=== PATIENT | male | born 1975 | race Caucasian/White ===

== ENCOUNTER 2016-11-06 09:20 | Observation (INO) | payer OTHER ==
[~2016-11-06] VITALS: Ht 190.5 cm; Wt 132.2 kg
[2016-11-06] MEDS ORDERED: ONDANSETRON 4MG/2ML VIAL (J2405) As Ordered ONE (09:56)
[2016-11-06 10:18] LABS: BASO % 0.1 % (0.0-1.0); EOS % 0.5 % (0.0-3.0); LARGE UNSTAINED CELL # 0.1 K/mm3 (0.0-0.4); LARGE UNSTAINED CELL % 0.5 % (0.0-4.0); LYMPH # 0.5 K/mm3 (1.5-4.5); MEAN CORPUSCULAR HEMOGLOBIN 28.5 pg (27.0-33.0); MEAN CORPUSCULAR HGB CONC 33.8 g/dl (32.0-36.5); MEAN CORPUSCULAR VOLUME 84.6 fl (80.0-96.0); MONO # 0.3 K/mm3 (0.0-0.8); MONO % 3.1 % (0.0-5.0); NEUTROPHILS # 9.4 K/mm3 (1.8-7.7); NEUTROPHILS % 90.8 % (36.0-66.0); PLATELET COUNT, AUTOMATED 225 k/mm3 (150-450); RED CELL DISTRIBUTION WIDTH 12.9 % (11.5-14.5); WHITE BLOOD COUNT 10.3 K/mm3 (4.0-10.0)
[2016-11-06] MEDS ORDERED: ISOVUE-370 76% 100ML VIAL (Q9967) As Ordered ONE (10:25)
[2016-11-06 10:38] LABS: ALBUMIN 4.1 GM/DL (3.2-5.2); ALBUMIN/GLOBULIN RATIO 1.14 (1.00-1.93); ALKALINE PHOSPHATASE 61 U/L (45-117); ALT/SGPT 56 U/L (12-78); ANION GAP 8 MEQ/L (8-16); AST/SGOT 29 U/L (15-37); BILIRUBIN,DIRECT 0.1 MG/DL (0.0-0.2); BILIRUBIN,TOTAL 0.7 MG/DL (0.2-1.0); BLOOD UREA NITROGEN 20 MG/DL (7-18); CALCIUM LEVEL 8.7 MG/DL (8.5-10.1); CARBON DIOXIDE LEVEL 29 MEQ/L (21-32); CHLORIDE LEVEL 103 MEQ/L (98-107); CREATININE FOR GFR 1.16 MG/DL (0.70-1.30); GLOMERULAR FILTRATION RATE > 60.0 (>60); GLUCOSE, FASTING 116 MG/DL (70-105); SODIUM LEVEL 140 MEQ/L (136-145); TOTAL PROTEIN 7.7 GM/DL (6.4-8.2)
--- NOTE | 2016-11-06 11:44 | REP ---
CT abdomen and pelvis with IV contrast: History: Abdominal pain. CT contrast dose: 100 ml of Isovue 370 is administered intravenously. Findings: Preliminary digital commercial estimator radiograph is unremarkable. The lung window settings demonstrate that the lung bases are clear. No pleural effusion is seen. The liver and the spleen are normal in size and homogeneous in texture. Gallbladder is unremarkable. No adrenal lesion is seen on either side. Pancreas is normal in appearance. The kidneys enhance symmetrically and are morphologically intact. There is an accessory lower pole right renal artery. Normal caliber aorta is seen. No retroperitoneal mass or adenopathy is observed. Seminal vesicles, prostate and urinary bladder are unremarkable. No abdominal wall defect is seen. No bony destructive lesion is appreciated. A normal appendix is seen in the right lower quadrant. Fluid-filled small bowel loops are noted in the upper abdomen. No obstructive lesion is seen. There is mild mural thickening of distal ileal loops fairly diffusely. The terminal most ileum shows some submucosal fat in the bowel wall. This finding may correlate with old inflammatory bowel disease. No other abnormality. Impression: 1. Question mild inflammatory bowel changes with mural thickening in the distal ileum and some submucosal fat in the terminal ileum. 2. Otherwise unremarkable CT study of the abdomen and pelvis with IV but without oral contrast. Normal appendix seen. Signed by Lavelle Hayden MD 11/06/2016 12:25 P
[2016-11-06] MEDS ORDERED: PROMETHAZINE INJ 25 MG/ML VIAL (J2550) As Ordered ONE ×2 (12:44→14:46)
[2016-11-06] MEDS ORDERED: CIPROFLOXACIN/D5W 400 MG/200 ML BAG (J0744) As Ordered ONE (14:46)
[2016-11-06] MEDS ORDERED: metroNIDAZOLE/NACL 500MG(5MG/ML)100 ML BAG (S0030) As Ordered ONE (14:46)
[2016-11-06] MEDS ORDERED: VITA500055 PO (14:55)
[2016-11-06] MEDS ORDERED: REFR0.5D8 OU (14:55)
[2016-11-06] MEDS ORDERED: PRAZ5CAP PO (14:55)
[2016-11-06] MEDS ORDERED: GABA300C3 PO (14:55)
[2016-11-06] MEDS ORDERED: BUPR300T34 PO (14:55)
[2016-11-06] MEDS ORDERED: BUDE3CAP PO (14:55)
[2016-11-06] MEDS ORDERED: ATOR1TAB21 PO (14:55)
[2016-11-06] MEDS ORDERED: NEXI40CA PO (14:55)
[2016-11-06] MEDS ORDERED: LISI10TA4 PO (14:55)
[2016-11-06] MEDS ORDERED: CIPROFLOXACIN 400 MG in APPROPRIATE DILUENT 1 EA IV ONE (15:15)
--- NOTE | 2016-11-06 15:17 | HPEPDOC ---
Medical History and Physical Date of Admission 11/06/16 History and Physical ATTENDING: Dr. Chapa PCP: Emily CC: Intractable vomiting HPI:41yoM with a past medical history significant for UC, HTN, HLD, who states he experienced an anxiety attack at approximately 2 AM followed by vomiting. Since 2 AM he states he has vomited approximately 15-16 times. He was seen at [facility] this morning and was given Zofran however it was ineffective. He continued to have intractable vomiting therefore was referred to the emergency department for further management. He also states he has had diarrhea 5-6 times since 6 AM. He feels chilled however he reports no fevers. He began to notice abdominal discomfort in the left lower quadrant. Prior to today he reports no recent illnesses. No sick contacts. Denies any weakness, fatigue, IBRAHIM, CP, SOB, cough, palpitations, changes in bladder habits. Upon presentation to the hospital the patient was found to have CT with inflammatory bowel changes, thus the hospitalist team was consulted. 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 ROS: As noted in HPI, otherwise 11pt ROS of systems reviewed and unremarkable PE: GEN: 41yoM, appears stated age. Well-nourished, well developed. No acute distress. Alert and oriented x 3. Pleasant, interactive. HEENT: Normocephalic, atraumatic. Pupils are equal, round, and reactive to light. Extraocular movements are intact. No nystagmus appreciated. Sclera are nonicteric. Conjunctiva without injection. Nose midline. Nasal turbinates without bogginess. EACs both patent BL. TMs both visualized and rodríguez with good cone of light, no bulging or erythema. No facial asymmetry. Moist mucous membranes. Dentition fair. Pharynx pink and moist, no cobblestoning. Neck supple , trachea midline. No lymphadenopathy or thyromegaly appreciated. CHEST: Regular rate and rhythm, +S1, +S2 LUNGS: Clear to auscultation bilaterally. No wheezes, rales, or rhonchi. Breathing appears symmetric and easy. Patient is speaking in full sentences. No accessory muscle use. ABD: Round, soft, mildly TTP RLQ, LLQ, non-distended. +Bowel sounds throughout. No rebound or guarding. No costovertebral angle tenderness. EXT: Pulses 2+ bilaterally dorsalis pedis and radial. No lower extremity edema appreciated. SKIN: [place], dry, warm. Capillary refill <2sec. No rashes. NEURO: Alert and oriented x 3. Cranial nerves III-XII are intact. No focal deficits appreciated. CT: 1. Question mild inflammatory bowel changes with mural thickening in the distal ileum and some submucosal fat in the terminal ileum. 2. Otherwise unremarkable CT study of the abdomen and pelvis with IV but without oral contrast. Normal appendix seen. BLOOD CULTURES: pending. A&P: 41yoM with a past medical history significant for UC, HTN, HLD, who states he experienced an anxiety attack at approximately 2 AM followed by vomiting. Since 2 AM he states he has vomited approximately 15-16 times. He was seen at [facility] this morning and was given Zofran however it was ineffective. He continued to have intractable vomiting therefore was referred to the emergency department for further management. The patient will be admitted to [facility] for at least [address] Chapa's service. Pt is discussed with Dr Bonilla. N/V/Diarrhea/Gastroenteritis. CT with mild inflammatory bowel changes and mural thickening. BC/UC pending. GI panel pending. IV Cipro/Flagyl initiated. IVF at 75 cc/hr. clear liquid diet. Phenergan as needed for nausea. (Zofran ineffective ). Tylenol as needed. H/O UC. Continue Entocort at outpatient dosing. Hypertension. Continue lisinopril with hold parameters. Hyperlipidemia. Continue statin. Anxiety/PTSD. Continue Wellbutrin/Minipress/gabapentin. GERD. Continue PPI DVT prophylaxis. The patient is a full code Vital Signs 149/94 83 16 96 98RA Laboratory Data Labs 24H Laboratory Tests 2 11/06/16 10:06: Aspartate Amino Transf (AST/SGOT) 29, Alanine Aminotransferase (ALT/SGPT) 56, Alkaline Phosphatase 61, Total Bilirubin 0.7, Direct Bilirubin 0.1, Albumin 4.1 , Albumin/Globulin Ratio 1.14, Anion Gap 8, White Blood Count 10.3H, Red Blood Count 5.32, Hemoglobin 15.2, Hematocrit 45.0, Mean Corpuscular Volume 84.6, Mean Corpuscular Hemoglobin 28.5, Mean Corpuscular Hemoglobin Concent 33.8, Red Cell Distribution Width 12.9, Platelet Count 225, Neutrophils (%) (Auto) 90.8H, Lymphocytes (%) (Auto) 5.0L, Monocytes (%) (Auto) 3.1, Eosinophils (%) (Auto) 0.5, Basophils (%) (Auto) 0.1, Neutrophils # (Auto) 9.4H, Lymphocytes # (Auto) 0.5L, Monocytes # (Auto) 0.3, Eosinophils # (Auto) 0.0, Basophils # (Auto) 0.0, Calcium Level 8.7, Glomerular Filtration Rate > 60.0, Large Unclassified Cells # 0.1, Large Unclassified Cells % 0.5, Lipase 149, Total Protein 7.7 CBC/BMP Laboratory Tests 11/06/16 10:06 Red Blood Count 5.32, Mean Corpuscular Volume 84.6, Mean Corpuscular Hemoglobin 28.5, Mean Corpuscular Hemoglobin Concent 33.8, Red Cell Distribution Width 12.9 , Neutrophils (%) (Auto) 90.8 H, Lymphocytes (%) (Auto) 5.0 L, Monocytes (%) ( Auto) 3.1, Eosinophils (%) (Auto) 0.5, Basophils (%) (Auto) 0.1, Neutrophils # ( Auto) 9.4 H, Lymphocytes # (Auto) 0.5 L, Monocytes # (Auto) 0.3, Eosinophils # ( Auto) 0.0, Basophils # (Auto) 0.0 Home Medications Scheduled Atorvastatin Calcium (Atorvastatin Calcium) 20 Mg Tab 20 MG PO DAILY Budesonide (Budesonide) 3 Mg Cap 9 MG PO DAILY Bupropion HCl (Bupropion HCl Xl) 300 Mg Tab 300 MG PO DAILY Cholecalciferol (Vitamin D3) 5,000 Unit Tab 5,000 UNIT PO DAILY Esomeprazole Magnesium Trihydr (Nexium) 40 Mg Cap 40 MG PO DAILY Gabapentin (Gabapentin) 300 Mg Cap 300 MG PO TID Lisinopril (Lisinopril) 10 Mg Tab 10 MG PO DAILY Prazosin Hcl (Prazosin HCl) 5 Mg Cap 5 MG PO QHS Scheduled PRN Carboxymethylcellulose Sodium (Refresh Tears) 0.5 % Brian 0.5 % OU PRN PRN PRN DRY EYES Allergies Coded Allergies: No Known Drug Allergy (Unverified Allergy, Unknown, 11/06/16) Sharyn Lopez Nov 06, 2016 15:17
[2016-11-06] MEDS ORDERED: PROMETHAZINE INJ 25 MG/ML VIAL (J2550) IV PRN (15:30)
[2016-11-06 15:44] VITALS: BP 138/76
--- NOTE | 2016-11-06 16:17 | EDDOCDS ---
Nurse's Notes [facility] Name: Jose A Balderas Age: 41 yrs Sex: Male : 1975 Arrival Date: 11/06/2016 Time: 09:20 Bed 17 Private MD: ALBERTO Diaz Diagnosis: Abdominal and pelvic pain;Nausea and vomiting Presentation: 11/06 09:28 Presenting complaint: Patient states: being seen at [facility] [place] and they couldn't get hs1 vomiting under control. Patient states sent here by Emily. Patient states that he suffers from anxiety attacks and suffers from intractable vomiting and IBD and vomits as an anxiety release. Patient states unable to control vomiting - appears very anxious and states he is anxious. Adult Sepsis Screening: The patient does not have new or worsening altered mentation. Patient's respiratory rate is less than 22. Systolic blood pressure is greater than 100. Patient has a qSOFA score of 0- Negative Sepsis Screen. Suicide/Homicide risk assessment- the patient denies having any suicidal and/or homicidal ideations and does not present with any other emotional, behavioral or mental health complaints. 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 Transition of care: patient was not received from another setting of care. 09:28 Acuity: EFFIE Level 3 hs1 09:28 Method Of Arrival: Walkin/Carried/Asstd hs1 Triage Assessment: 09:33 General: Appears uncomfortable, Behavior is anxious, restless. Pain: Location: abdomen hs1 Pain currently is 5 out of 10 on a pain scale. HIV screening NA for this visit Offered previously. GI: Reports nausea, vomiting. Derm: Skin is normal. Historical: - Allergies: No known drug Allergies; - Home Meds: 1. Wellbutrin XL 300 mg Oral Tb24 1 tab once daily 2. gabapentin 300 mg Oral tab three times a day 3. Zestril 20 mg Oral tab 1 tab once daily 4. Lipitor 20 mg Oral tab 1 tab once daily 5. something for IBD 6. Flexeril 5 mg Oral tab 1 tab 3 times per day as needed 7. prazosin 5 mg Oral cap nightly - PMHx: IBD; PTSD; Anxiety; Colitis; GERD; - PSHx: none; - Social history: Smoking status: Patient states was never smoker of tobacco. No barriers to communication noted, The patient speaks fluent [place], Speaks appropriately for age. - Family history: Not pertinent. - : The pt / caregiver states he / she is not on anticoagulants. Home medication list is obtained from the patient. - Exposure Risk Screening:: None identified. Screenin:09 Screening information is obtained from the patient. Fall risk: No risks identified. ml6 Assistance ADL's: requires no assistance with activities of daily living. Abuse/DV Screen: The patient / caregiver reports he/she is: not in a situation that causes fear, pain or injury. Nutritional screening: No deficits noted. Advance Directives: Currently, there is no health care proxy. home support is adequate. Assessment: 10:00 General: Appears in no apparent distress, Behavior is anxious, cooperative. Pain: ml6 Location: left lower quadrant Pain currently is 5 out of 10 on a pain scale. Pain does not radiate. Quality of pain is described as aching, Pain began years ago. Is intermittent episodic lasting more than 1 hour Alleviated by medications, rest. Cardiovascular: Capillary refill < 3 seconds is brisk in bilateral fingers toes. Respiratory: No deficits noted. Airway is patent Respiratory effort is even, unlabored, Respiratory pattern is regular, symmetrical, Breath sounds are clear bilaterally. GI: Abdomen is flat, non- distended Bowel sounds present X 4 quads. Abd is soft and non tender X 4 quads. Reports nausea, vomiting. 11:00 Reassessment: Patient appears in no apparent distress at this time. Patient denies pain ml6 at this time. Patient states feeling better. Patient states symptoms have improved. GI: Reports nausea. 12:00 Reassessment: Patient appears in no apparent distress at this time. Patient denies pain ml6 at this time. Patient states feeling better. Patient states symptoms have improved. 13:00 General: Appears in no apparent distress, comfortable, Behavior is anxious, ml6 cooperative. Pain: Denies pain. Cardiovascular: No deficits noted. Capillary refill < 3 seconds is brisk in bilateral fingers toes. Respiratory: No deficits noted. Airway is patent Respiratory effort is even, unlabored, Respiratory pattern is regular, symmetrical, Breath sounds are clear bilaterally. GI: Abdomen is flat, non- distended Bowel sounds present X 4 quads. Abd is soft and non tender X 4 quads. Reports nausea, Denies vomiting. 14:00 Reassessment: Patient appears in no apparent distress at this time. Patient denies pain ml6 at this time. Patient states feeling better. Patient states symptoms have improved. patient states that his nausea has improved. 15:00 Reassessment: Patient appears in no apparent distress at this time. Patient denies pain ml6 at this time. Patient states feeling better. Patient states symptoms have improved. no change from previous assessment. 16:13 General: Appears in no apparent distress, comfortable, Behavior is anxious, ml6 cooperative. Pain: Denies pain. Cardiovascular: No deficits noted. Capillary refill < 3 seconds is brisk in bilateral fingers toes Heart tones S1 S2 present Edema is absent. Pulses are all present. Respiratory: No deficits noted. Airway is patent Respiratory effort is even, unlabored, Respiratory pattern is regular, symmetrical, Breath sounds are clear bilaterally. GI: No deficits noted. Abdomen is flat, non- distended Bowel sounds present X 4 quads. Abd is soft and non tender. Vital Signs: 09:22 BP 149 / 94; Pulse 83; Resp 16; Temp 96.0(O); Pulse Ox 98% on R/A; Weight 132.9 kg (R); elp Height 75 in. (190.50 cm) (R); 15:43 BP 138 / 76 (auto/); Pulse 81; Resp 16; Temp 100(O); Pulse Ox 98% on R/A; Pain 0/10; ml6 09:22 Body Mass Index 36.62 (132.90 kg, 190.50 cm) el Vitals: 09:22 Log In Time: November 06, 2016 at 09:20. [facility] ED Course: 09:21 Patient visited by Gini Prajapati PCA. elp 09:21 Emily [facility] is Private Physician. elp 09:21 Patient moved to Waiting elp 09:23 Patient visited by Gini Prajapati PCA. elp 09:24 Patient moved to Pre RCE elp 09:30 Triage Initiated hs1 09:35 Norma Bennett RN is Primary Nurse. dwg 09:35 Patient moved to 8 dwg 09:37 Patient moved to 17 dwg 09:38 Primary Nurse role handed off by Norma Bennett RN srm 09:55 Patient visited by Adrien Mckeon RN. ml6 09:56 Jacquelyn Mcgowan MD is Attending Physician. fg 09:56 Patient visited by Jacquelyn Mcgowan MD. fg 10:00 Inserted peripheral IV: 18gauge IV in left antecubital area and blood collected. ml6 Patient tolerated the procedure well. Labs drawn. (by ED staff). Sent per order to lab. 10:36 Patient visited by Adrien Mckeon, NIHARIKA. ml6 10:56 [facility] [place] Payment Agreement was scanned into [employer] and attached to record. lg 11:16 Patient visited by Adrien Mckeon RN. ml6 11:44 Patient visited by Adrien Mckeon RN. ml6 11:45 CT ABD & PELVIS: IV Contrast Only Returned. EDMS 12:10 Patient visited by Adrien Mckeon RN. ml6 12:24 Patient visited by Ruchi Andrade RN. srm 13:02 Patient visited by Adrien Mckeon RN. ml6 14:05 Patient visited by Adrien Mckeon RN. ml6 14:34 Bi Bonilla is Hospitalizing Provider. fg 16:14 The patient / caregiver is instructed regarding the plan of care and ED course. ml6 16:14 No procedures done that require assistance. ml6 Administered Medications: 10:10 Drug: NS 0.9% 1000 ml [sodium chloride 0.9 % intravenous solution] Route: IV; Rate: ml6 bolus; Site: left antecubital; 10:10 Drug: Ondansetron 4 mg [ondansetron HCl 2 mg/mL intravenous solution (2 mL)] Route: ml6 IVP; Site: left antecubital; 12:45 Drug: Promethazine 12.5 mg [promethazine 25 mg/mL injection solution (0.5 mL)] Route: ml6 IVP; Site: left antecubital; 14:31 Drug: Promethazine 12.5 mg [promethazine 25 mg/mL injection solution (0.5 mL)] Route: ml6 IVP; Site: left antecubital; 14:35 Drug: metroNIDAZOLE 500 mg [metronidazole 500 mg/100 mL-sodium chloride(iso) ml6 intravenous piggyback] Route: IV; Rate: 100 mL/hr; Infused Over: 60 mins; Site: left antecubital; 14:53 Drug: Ciprofloxacin 400 mg [ciprofloxacin 400 mg/200 mL in 5 % dextrose intravenous ml6 piggyback] Route: IVPB; Rate: 200 mL/hr; Infused Over: 60 mins; Site: left antecubital; Order Results: Lab Order: CBC with Diff; SPEC'M 11/06/16 10:06 Test: WHITE BLOOD COUNT; Value: 10.3; Range: 4.0-10.0; Abnormal: Above high normal; Units: K/mm3; Status: F Test: RED BLOOD COUNT; Value: 5.32; Range: 4.30-6.10; Units: M/mm3; Status: F Test: HEMOGLOBIN; Value: 15.2; Range: 14.0-18.0; Units: g/dl; Status: F Test: HEMATOCRIT; Value: 45.0; Range: 42.0-52.0; Units: %; Status: F Test: MEAN CORPUSCULAR VOLUME; Value: 84.6; Range: 80.0-96.0; Units: fl; Status: F Test: MEAN CORPUSCULAR HEMOGLOBIN; Value: 28.5; Range: 27.0-33.0; Units: pg; Status: F Test: MEAN CORPUSCULAR HGB CONC; Value: 33.8; Range: 32.0-36.5; Units: g/dl; Status: F Test: RED CELL DISTRIBUTION WIDTH; Value: 12.9; Range: 11.5-14.5; Units: %; Status: F Test: PLATELET COUNT, AUTOMATED; Value: 225; Range: 150-450; Units: k/mm3; Status: F Test: NEUTROPHILS %; Value: 90.8; Range: 36.0-66.0; Abnormal: Above high normal; Units: %; Status: F Test: LYMPH %; Value: 5.0; Range: 24.0-44.0; Abnormal: Below low normal; Units: %; Status: F Test: MONO %; Value: 3.1; Range: 0.0-5.0; Units: %; Status: F Test: EOS %; Value: 0.5; Range: 0.0-3.0; Units: %; Status: F Test: BASO %; Value: 0.1; Range: 0.0-1.0; Units: %; Status: F Test: LARGE UNSTAINED CELL %; Value: 0.5; Range: 0.0-4.0; Units: %; Status: F Test: NEUTROPHILS #; Value: 9.4; Range: 1.8-7.7; Abnormal: Above high normal; Units: K/mm3; Status: F Test: LYMPH #; Value: 0.5; Range: 1.5-4.5; Abnormal: Below low normal; Units: K/mm3; Status: F Test: MONO #; Value: 0.3; Range: 0.0-0.8; Units: K/mm3; Status: F Test: EOS #; Value: 0.0; Range: 0.0-0.50; Units: K/mm3; Status: F Test: BASO #; Value: 0.0; Range: 0.0-0.2; Units: K/mm3; Status: F Test: LARGE UNSTAINED CELL #; Value: 0.1; Range: 0.0-0.4; Units: K/mm3; Status: F Lab Order: Basic Metabolic Profile; [facility]' 11/06/16 10:06 Test: GLUCOSE, FASTING; Value: 116; Range: 70-105; Abnormal: Above high normal; Units: MG/DL; Status: F Test: BLOOD UREA NITROGEN; Value: 20; Range: 7-18; Abnormal: Above high normal; Units: MG/DL; Status: F Test: CREATININE FOR GFR; Value: 1.16; Range: 0.70-1.30; Units: MG/DL; Status: F Test: GLOMERULAR FILTRATION RATE; Value: > 60.0; Range: >60; Status: F Test: SODIUM LEVEL; Value: 140; Range: 136-145; Units: MEQ/L; Status: F Test: POTASSIUM SERUM; Value: 4.0; Range: 3.5-5.1; Units: MEQ/L; Status: F Test: CHLORIDE LEVEL; Value: 103; Range: 98-107; Units: MEQ/L; Status: F Test: CARBON DIOXIDE LEVEL; Value: 29; Range: 21-32; Units: MEQ/L; Status: F Test: ANION GAP; Value: 8; Range: 8-16; Units: MEQ/L; Status: F Test: CALCIUM LEVEL; Value: 8.7; Range: 8.5-10.1; Units: MG/DL; Status: F Test Note: ; Units are mL/min/1.73 m2 Chronic Kidney Disease Staging per NKF: Stage I & II GFR >=60 Normal to Mildly Decreased Stage III GFR 30-59 Moderately Decreased Stage IV GFR 15-29 Severely Decreased Stage V GFR <15 Very Little GFR Left ESRD GFR <15 on LABOR COMMISSIONER Lab Order: Lipase; SPEC'M 11/06/16 10:06 Test: LIPASE; Value: 149; Range: 73-393; Units: U/L; Status: F Lab Order: Liver Profile; SPEC'M 11/06/16 10:06 Test: AST/SGOT; Value: 29; Range: 15-37; Units: U/L; Status: F Test: ALT/SGPT; Value: 56; Range: 12-78; Units: U/L; Status: F Test: ALKALINE PHOSPHATASE; Value: 61; Range: 45-117; Units: U/L; Status: F Test: BILIRUBIN,TOTAL; Value: 0.7; Range: 0.2-1.0; Units: MG/DL; Status: F Test: BILIRUBIN,DIRECT; Value: 0.1; Range: 0.0-0.2; Units: MG/DL; Status: F Test: TOTAL PROTEIN; Value: 7.7; Range: 6.4-8.2; Units: GM/DL; Status: F Test: ALBUMIN; Value: 4.1; Range: 3.2-5.2; Units: GM/DL; Status: F Test: ALBUMIN/GLOBULIN RATIO; Value: 1.14; Range: 1.00-1.93; Status: F Radiology Order: CT ABD & PELVIS: IV Contrast Only Test: CT ABD & PELVIS: IV Contrast Only REASON FOR EXAMINATION: Abdomen Pain; CT abdomen and pelvis with IV contrast:; ; History: Abdominal pain.; ; CT contrast dose: 100 ml of Isovue 370 is administered intravenously.; ; Findings: Preliminary digital security compliance engineer radiograph is unremarkable. The lung window; settings demonstrate that the lung bases are clear. No pleural effusion is seen.; The liver and the spleen are normal in size and homogeneous in texture.; Gallbladder is unremarkable. No adrenal lesion is seen on either side. Pancreas; is normal in appearance. The kidneys enhance symmetrically and are; morphologically intact. There is an accessory lower pole right renal artery.; Normal caliber aorta is seen. No retroperitoneal mass or adenopathy is observed.; Seminal vesicles, prostate and urinary bladder are unremarkable. No abdominal; wall defect is seen. No bony destructive lesion is appreciated.; ; A normal appendix is seen in the right lower quadrant. Fluid-filled small bowel; loops are noted in the upper abdomen. No obstructive lesion is seen. There is; mild mural thickening of distal ileal loops fairly diffusely. The terminal most; ileum shows some submucosal fat in the bowel wall. This finding may correlate; with old inflammatory bowel disease. No other abnormality.; ; Impression:; ; 1. Question mild inflammatory bowel changes with mural thickening in the distal; ileum and some submucosal fat in the terminal ileum.; ; 2. Otherwise unremarkable CT study of the abdomen and pelvis with IV but without; oral contrast. Normal appendix seen.; ; ; Signed by; Lavelle Hayden MD 11/06/2016 12:25 P; Outcome: 14:34 Decision to Hospitalize by Provider. fg 16:13 Discharge Assessment: patient administered narcotics - no. The following High Risk ml6 Discharge criteria are identified: None. Admitted to Med/Surg accompanied by tech, via stretcher, with chart. Condition: stable. CT Study completed. Property sent home with patient. :Personal belongings accompany Pt. 16:15 Patient left the ED. ml6 Signatures: Dispatcher [employer] EDTahir Kimble RN RN dwg Michelson, Staci RN Temo Kessler, Angelo Reg Adrien Mckeon RN RN ml6 Alyssa Lyon RN RN 1 Gini Prajapati, AUTOMATIC PROFILE SANDER OPERATOR AUTOMATIC PROFILE SANDER OPERATOR Jacquelyn Liao MD MD MTDD
--- NOTE | 2016-11-06 16:17 | EDDOCDS ---
Physician Documentation [facility] Name: Jose A Balderas Age: 41 yrs Sex: Male : 1975 Arrival Date: 11/06/2016 Time: 09:20 Bed 17 Private MD: Emily [facility] [place], [place] Disposition: 11/06/16 14:34 Hospitalization ordered by Bi Bonilla for Inpatient Admission. Preliminary diagnosis are Abdominal and pelvic pain, Nausea and vomiting. - Bed requested for 4 [place]. - Status is Inpatient Admission. ml6 - Condition is Stable. - Problem is new. - Symptoms have improved. Historical: - Allergies: No known drug Allergies; - Home Meds: 1. Wellbutrin XL 300 mg Oral Tb24 1 tab once daily 2. gabapentin 300 mg Oral tab three times a day 3. Zestril 20 mg Oral tab 1 tab once daily 4. Lipitor 20 mg Oral tab 1 tab once daily 5. something for IBD 6. Flexeril 5 mg Oral tab 1 tab 3 times per day as needed 7. prazosin 5 mg Oral cap nightly - PMHx: IBD; PTSD; Anxiety; Colitis; GERD; - PSHx: none; - Social history: Smoking status: Patient states was never smoker of tobacco. No barriers to communication noted, The patient speaks fluent Ethiopian, Speaks appropriately for age. - Family history: Not pertinent. - : The pt / caregiver states he / she is not on anticoagulants. Home medication list is obtained from the patient. - Exposure Risk Screening:: None identified. Vital Signs: 11/06 09:22 BP 149 / 94; Pulse 83; Resp 16; Temp 96.0(O); Pulse Ox 98% on R/A; Weight 132.9 kg / elp 292.99 lbs (R); Height 75 in. (190.50 cm) (R); 15:43 BP 138 / 76 (auto/); Pulse 81; Resp 16; Temp 100(O); Pulse Ox 98% on R/A; Pain 0/10; ml6 09:22 Body Mass Index 36.62 (132.90 kg, 190.50 cm) elp MDM: 09:49 IV Saline Lock ordered. fg 09:49 NS 0.9% 1000 ml IV at bolus once ordered. fg 09:49 Undress patient appropriately for examination ordered. fg 09:49 CBC with Diff Ordered. EDMS 09:49 Basic Metabolic Profile Ordered. EDMS 09:49 Lipase Ordered. EDMS 09:49 Liver Profile Ordered. EDMS 09:50 NOTHING BY MOUTH+DIET ordered. EDMS 09:54 Ondansetron 4 mg IVP once ordered. ml6 10:15 CT ABD & PELVIS: IV Contrast Only Ordered. EDMS 10:28 Financial registration complete. lg 10:56 [facility] Payment Agreement was scanned into [employer] and attached to record. lg 12:44 Promethazine 12.5 mg IVP once; dilute and administer 30-60 minutes ordered. fg 14:28 Promethazine 12.5 mg IVP once; dilute and administer 30-60 minutes ordered. fg 14:34 Ciprofloxacin 400 mg IVPB at 200 mL/hr once over 60 mins ordered. fg 14:34 metroNIDAZOLE 500 mg IV at 100 mL/hr once over 60 mins ordered. fg 15:08 Admission / Observation Status ordered. EDMS 15:16 CLEAR LIQUIDS DIET ordered. EDMS 15:17 GASTROINTESTINAL (GI) PANEL Ordered. EDMS 15:17 GASTROINTESTINAL (GI) PANEL Ordered. EDMS 15:19 URINALYSIS Ordered. EDMS 15:19 BLOOD CULTURES Ordered. EDMS 15:19 BLOOD CULTURES Ordered. EDMS 15:19 URINE CULTURE Ordered. EDMS Administered Medications: 10:10 Drug: NS 0.9% 1000 ml [sodium chloride 0.9 % intravenous solution] Route: IV; Rate: ml6 bolus; Site: left antecubital; 10:10 Drug: Ondansetron 4 mg [ondansetron HCl 2 mg/mL intravenous solution (2 mL)] Route: ml6 IVP; Site: left antecubital; 12:45 Drug: Promethazine 12.5 mg [promethazine 25 mg/mL injection solution (0.5 mL)] Route: ml6 IVP; Site: left antecubital; 14:31 Drug: Promethazine 12.5 mg [promethazine 25 mg/mL injection solution (0.5 mL)] Route: ml6 IVP; Site: left antecubital; 14:35 Drug: metroNIDAZOLE 500 mg [metronidazole 500 mg/100 mL-sodium chloride(iso) ml6 intravenous piggyback] Route: IV; Rate: 100 mL/hr; Infused Over: 60 mins; Site: left antecubital; 14:53 Drug: Ciprofloxacin 400 mg [ciprofloxacin 400 mg/200 mL in 5 % dextrose intravenous ml6 piggyback] Route: IVPB; Rate: 200 mL/hr; Infused Over: 60 mins; Site: left antecubital; Signatures: Dispatcher [employer] Temo Gilmore, Reg Reg lg Adrien Mckeon RN RN ml6 Alyssa Lyon RN RN hs1 Radha Early RN RN [id number] Jacquelyn Mcgowan MD MD The chart was reviewed and I authenticate all verbal orders and agree with the evaluation and treatment provided.Attachments: 10:56 [facility] Payment Agreement lg MTDD
[2016-11-06 16:28] VITALS: BP 114/77
[2016-11-06] MEDS: ACETAMINOPHEN TAB 650MG DOSE (2X325MG) PO PRN (17:07)
[2016-11-06] MEDS: NS 1,000 ML IV SCH (17:07)
[2016-11-06] MEDS: PANTOPRAZOLE 40MG TAB (PROTONIX) PO SCH (17:07)
[2016-11-06] MEDS: buPROPion **XL** TABLET 150MG (WELLBUTRIN XL) PO SCH (18:23)
[2016-11-06] MEDS: GABAPENTIN 300 MG CAP PO SCH ×2 (18:23→20:13)
[2016-11-06] MEDS: LISINOPRIL 10 MG TAB PO SCH (18:26)
[2016-11-06] MEDS: PRAZOSIN 1 MG CAP PO SCH (20:14)
[2016-11-06 22:00] VITALS: BP 165/90
[2016-11-06] MEDS: metroNIDAZOLE 500 MG in APPROPRIATE DILUENT 1 EA IV SCH (23:41)
[2016-11-07] MEDS: NS 1,000 ML IV SCH (04:39)
[2016-11-07 06:00] VITALS: BP 140/77
[2016-11-07 07:09] LABS: BASO % 0.2 % (0.0-1.0); LARGE UNSTAINED CELL # 0.1 K/mm3 (0.0-0.4); LARGE UNSTAINED CELL % 1.9 % (0.0-4.0); LYMPH # 1.4 K/mm3 (1.5-4.5); MEAN CORPUSCULAR HGB CONC 34.8 g/dl (32.0-36.5); MEAN CORPUSCULAR VOLUME 83.5 fl (80.0-96.0); MONO # 0.4 K/mm3 (0.0-0.8); MONO % 7.7 % (0.0-5.0); NEUTROPHILS # 2.8 K/mm3 (1.8-7.7); NEUTROPHILS % 60.2 % (36.0-66.0); PLATELET COUNT, AUTOMATED 176 k/mm3 (150-450); RED CELL DISTRIBUTION WIDTH 13.2 % (11.5-14.5); WHITE BLOOD COUNT 4.6 K/mm3 (4.0-10.0)
[2016-11-07 07:23] LABS: ALBUMIN 3.3 GM/DL (3.2-5.2); ALBUMIN/GLOBULIN RATIO 1.18 (1.00-1.93); ALKALINE PHOSPHATASE 50 U/L (45-117); ALT/SGPT 36 U/L (12-78); ANION GAP 9 MEQ/L (8-16); AST/SGOT 22 U/L (15-37); BILIRUBIN,TOTAL 0.7 MG/DL (0.2-1.0); BLOOD UREA NITROGEN 16 MG/DL (7-18); CALCIUM LEVEL 7.7 MG/DL (8.5-10.1); CARBON DIOXIDE LEVEL 27 MEQ/L (21-32); CHLORIDE LEVEL 103 MEQ/L (98-107); CREATININE FOR GFR 1.12 MG/DL (0.70-1.30); GLOMERULAR FILTRATION RATE > 60.0 (>60); GLUCOSE, FASTING 106 MG/DL (70-105); POTASSIUM SERUM 3.5 MEQ/L (3.5-5.1); SODIUM LEVEL 139 MEQ/L (136-145); TOTAL PROTEIN 6.1 GM/DL (6.4-8.2)
[2016-11-07] MEDS: GABAPENTIN 300 MG CAP PO SCH ×3 (09:06→21:35)
[2016-11-07] MEDS: LISINOPRIL 10 MG TAB PO SCH (09:06)
[2016-11-07] MEDS: metroNIDAZOLE 500 MG in APPROPRIATE DILUENT 1 EA IV SCH ×2 (09:06→15:51)
[2016-11-07] MEDS: PANTOPRAZOLE 40MG TAB (PROTONIX) PO SCH (09:06)
[2016-11-07] MEDS: buPROPion **XL** TABLET 150MG (WELLBUTRIN XL) PO SCH (09:06)
[2016-11-07] MEDS: ACETAMINOPHEN TAB 650MG DOSE (2X325MG) PO PRN (09:08)
[2016-11-07] MEDS: BUDESONIDE EC 3 MG CAP (ENTOCORT EC) PO SCH ×2 (12:02→12:03)
[2016-11-07] MEDS: ATORVASTATIN 20 MG TAB PO SCH ×2 (12:02→12:03)
--- NOTE | 2016-11-07 12:44 | IPN ---
DATE: 11/07/2016 SUBJECTIVE: The patient tells me he is feeling better. He tells me that he had diarrhea around 5 a.m. but no further episode since then. He has not had any nausea or vomiting since being in the emergency room (ER). He tolerated a clear liquid breakfast without any complaints. OBJECTIVE: VITAL SIGNS: Maximum temperature (Tmax) 100.7. Pulse 85. Respiratory rate 18. Blood pressure (BP) 140/778. Oxygen saturation 93% on room air. GENERAL: He is a very pleasant middle-age man up and ambulating around his room. He does not appear to be in any distress. HEENT: Cranial nerves II-XII are grossly intact. He has moist mucous membranes. No elevation of central venous pressure (CVP). CARDIOVASCULAR EXAM: S1, S2. Regular. RESPIRATORY EXAM: Is clear. ABDOMINAL EXAM: Is benign. It is nontender to palpation. Bowel sounds are present. EXTREMITIES: No clubbing, cyanosis or edema. LABORATORY STUDIES: WBC 4.6, hemoglobin 12.5, hematocrit 35.8, platelet count is 186. dilutional drop in all cell lines Chemistry panel: Sodium 139, potassium 3.5, chloride 103 bicarbonate 27, BUN 16 , creatinine 1.1. Blood cultures are currently pending. CT of the abdomen and pelvis revealed mild inflammatory bowel changes with mural thickening in the distal ilium and submucosal fat in the terminal ileum. ASSESSMENT AND PLAN: This is a 41-year-old man with nausea, vomiting, and diarrhea. PROBLEMS: 1. Nausea, vomiting and diarrhea. The patient has a history of ulcerative colitis. He has been started on Cipro and Flagyl IV and a clear liquid diet, which he has tolerated well and his symptoms have since resolved at this point in time. I am less suspicious for an ulcerative colitis, but I am more suspicious for gastroenteritis versus irritable bowel syndrome as the patient awoke and "had a panic attack," and he has had similar episodes lately in the past, which are self limited in 24 hours. Thus, we will continue the patient on Cipro and Flagyl IV. We will advance his diet to regular. Should he tolerate a regular diet, we will transition to oral medications, discontinue his IV fluids and possibly be discharged home tomorrow. 2. Hypertension. controlled 3. Anxiety, posttraumatic stress disorder (PTSD). The patient is on Wellbutrin. 4. Chronic pain. The patient is on Neurontin. 5. BPH. The patient is on prazosin. 6. HLD. The patient is on Lipitor. 7. Ulcerative colitis. The patient is on EndoCoat, which we are continuing. 8. Deep venous thrombosis (DVT) prophylaxis. Early ambulation and thromboembolism deterrents (TEDs). DISPOSITION: The patient may be able to be discharged in the next 24-48 hours. MTDD
[2016-11-07 14:00] VITALS: BP 136/80
[2016-11-07] MEDS: PRAZOSIN 1 MG CAP PO SCH (21:36)
[2016-11-07 22:00] VITALS: BP 122/74
[2016-11-08 06:00] VITALS: BP 124/86
[2016-11-08 06:39] LABS: BASO % 0.2 % (0.0-1.0); EOS # 0.1 K/mm3 (0.0-0.50); EOS % 2.3 % (0.0-3.0); LARGE UNSTAINED CELL # 0.1 K/mm3 (0.0-0.4); LARGE UNSTAINED CELL % 1.5 % (0.0-4.0); LYMPH # 1.9 K/mm3 (1.5-4.5); LYMPH % 28.6 % (24.0-44.0); MEAN CORPUSCULAR HEMOGLOBIN 28.9 pg (27.0-33.0); MEAN CORPUSCULAR HGB CONC 34.4 g/dl (32.0-36.5); MONO # 0.4 K/mm3 (0.0-0.8); MONO % 6.3 % (0.0-5.0); NEUTROPHILS # 3.8 K/mm3 (1.8-7.7); NEUTROPHILS % 61.3 % (36.0-66.0); PLATELET COUNT, AUTOMATED 200 k/mm3 (150-450); RED CELL DISTRIBUTION WIDTH 13.2 % (11.5-14.5); WHITE BLOOD COUNT 6.2 K/mm3 (4.0-10.0)
[2016-11-08 06:58] LABS: ALBUMIN 3.4 GM/DL (3.2-5.2); ALKALINE PHOSPHATASE 53 U/L (45-117); ALT/SGPT 38 U/L (12-78); ANION GAP 8 MEQ/L (8-16); AST/SGOT 21 U/L (15-37); BILIRUBIN,TOTAL 0.4 MG/DL (0.2-1.0); BLOOD UREA NITROGEN 13 MG/DL (7-18); CALCIUM LEVEL 7.9 MG/DL (8.5-10.1); CARBON DIOXIDE LEVEL 27 MEQ/L (21-32); CHLORIDE LEVEL 105 MEQ/L (98-107); CREATININE FOR GFR 1.08 MG/DL (0.70-1.30); GLOMERULAR FILTRATION RATE > 60.0 (>60); GLUCOSE, FASTING 102 MG/DL (70-105); POTASSIUM SERUM 3.4 MEQ/L (3.5-5.1); SODIUM LEVEL 140 MEQ/L (136-145); TOTAL PROTEIN 6.8 GM/DL (6.4-8.2)
[2016-11-08 09:04] VITALS: BP 124/86
[2016-11-08] MEDS: GABAPENTIN 300 MG CAP PO SCH (09:04)
[2016-11-08] MEDS: BUDESONIDE EC 3 MG CAP (ENTOCORT EC) PO SCH (09:04)
[2016-11-08] MEDS: PANTOPRAZOLE 40MG TAB (PROTONIX) PO SCH (09:04)
[2016-11-08] MEDS: buPROPion **XL** TABLET 150MG (WELLBUTRIN XL) PO SCH (09:04)
[2016-11-08] MEDS: ATORVASTATIN 20 MG TAB PO SCH (09:04)
[2016-11-08] MEDS: LISINOPRIL 10 MG TAB PO SCH (09:04)
--- NOTE | 2016-11-08 17:17 | EDDOCDS ---
Nurse's Notes [facility] Name: Jose A Balderas Age: 41 yrs Sex: Male : 1975 Arrival Date: 11/06/2016 Time: 09:20 Bed 17 Private MD: ALBERTO Diaz Diagnosis: Abdominal and pelvic pain;Nausea and vomiting Presentation: 11/06 09:28 Presenting complaint: Patient states: being seen at [facility] and they couldn't get hs1 vomiting under control. Patient states sent here by Emily. Patient states that he suffers from anxiety attacks and suffers from intractable vomiting and IBD and vomits as an anxiety release. Patient states unable to control vomiting - appears very anxious and states he is anxious. Adult Sepsis Screening: The patient does not have new or worsening altered mentation. Patient's respiratory rate is less than 22. Systolic blood pressure is greater than 100. Patient has a qSOFA score of 0- Negative Sepsis Screen. Suicide/Homicide risk assessment- the patient denies having any suicidal and/or homicidal ideations and does not present with any other emotional, behavioral or mental health complaints. 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 Transition of care: patient was not received from another setting of care. 09:28 Acuity: EFFIE Level 3 hs1 09:28 Method Of Arrival: Walkin/Carried/Asstd hs1 Triage Assessment: 09:33 General: Appears uncomfortable, Behavior is anxious, restless. Pain: Location: abdomen hs1 Pain currently is 5 out of 10 on a pain scale. HIV screening NA for this visit Offered previously. GI: Reports nausea, vomiting. Derm: Skin is normal. Historical: - Allergies: No known drug Allergies; - Home Meds: 1. Wellbutrin XL 300 mg Oral Tb24 1 tab once daily 2. gabapentin 300 mg Oral tab three times a day 3. Zestril 20 mg Oral tab 1 tab once daily 4. Lipitor 20 mg Oral tab 1 tab once daily 5. something for IBD 6. Flexeril 5 mg Oral tab 1 tab 3 times per day as needed 7. prazosin 5 mg Oral cap nightly - PMHx: IBD; PTSD; Anxiety; Colitis; GERD; - PSHx: none; - Social history: Smoking status: Patient states was never smoker of tobacco. No barriers to communication noted, The patient speaks fluent Tunisian, Speaks appropriately for age. - Family history: Not pertinent. - : The pt / caregiver states he / she is not on anticoagulants. Home medication list is obtained from the patient. - Exposure Risk Screening:: None identified. Screenin:09 Screening information is obtained from the patient. Fall risk: No risks identified. ml6 Assistance ADL's: requires no assistance with activities of daily living. Abuse/DV Screen: The patient / caregiver reports he/she is: not in a situation that causes fear, pain or injury. Nutritional screening: No deficits noted. Advance Directives: Currently, there is no health care proxy. home support is adequate. Assessment: 10:00 General: Appears in no apparent distress, Behavior is anxious, cooperative. Pain: ml6 Location: left lower quadrant Pain currently is 5 out of 10 on a pain scale. Pain does not radiate. Quality of pain is described as aching, Pain began years ago. Is intermittent episodic lasting more than 1 hour Alleviated by medications, rest. Cardiovascular: Capillary refill < 3 seconds is brisk in bilateral fingers toes. Respiratory: No deficits noted. Airway is patent Respiratory effort is even, unlabored, Respiratory pattern is regular, symmetrical, Breath sounds are clear bilaterally. GI: Abdomen is flat, non- distended Bowel sounds present X 4 quads. Abd is soft and non tender X 4 quads. Reports nausea, vomiting. 11:00 Reassessment: Patient appears in no apparent distress at this time. Patient denies pain ml6 at this time. Patient states feeling better. Patient states symptoms have improved. GI: Reports nausea. 12:00 Reassessment: Patient appears in no apparent distress at this time. Patient denies pain ml6 at this time. Patient states feeling better. Patient states symptoms have improved. 13:00 General: Appears in no apparent distress, comfortable, Behavior is anxious, ml6 cooperative. Pain: Denies pain. Cardiovascular: No deficits noted. Capillary refill < 3 seconds is brisk in bilateral fingers toes. Respiratory: No deficits noted. Airway is patent Respiratory effort is even, unlabored, Respiratory pattern is regular, symmetrical, Breath sounds are clear bilaterally. GI: Abdomen is flat, non- distended Bowel sounds present X 4 quads. Abd is soft and non tender X 4 quads. Reports nausea, Denies vomiting. 14:00 Reassessment: Patient appears in no apparent distress at this time. Patient denies pain ml6 at this time. Patient states feeling better. Patient states symptoms have improved. patient states that his nausea has improved. 15:00 Reassessment: Patient appears in no apparent distress at this time. Patient denies pain ml6 at this time. Patient states feeling better. Patient states symptoms have improved. no change from previous assessment. 16:13 General: Appears in no apparent distress, comfortable, Behavior is anxious, ml6 cooperative. Pain: Denies pain. Cardiovascular: No deficits noted. Capillary refill < 3 seconds is brisk in bilateral fingers toes Heart tones S1 S2 present Edema is absent. Pulses are all present. Respiratory: No deficits noted. Airway is patent Respiratory effort is even, unlabored, Respiratory pattern is regular, symmetrical, Breath sounds are clear bilaterally. GI: No deficits noted. Abdomen is flat, non- distended Bowel sounds present X 4 quads. Abd is soft and non tender. Vital Signs: 09:22 BP 149 / 94; Pulse 83; Resp 16; Temp 96.0(O); Pulse Ox 98% on R/A; Weight 132.9 kg (R); elp Height 75 in. (190.50 cm) (R); 15:43 BP 138 / 76 (auto/); Pulse 81; Resp 16; Temp 100(O); Pulse Ox 98% on R/A; Pain 0/10; ml6 09:22 Body Mass Index 36.62 (132.90 kg, 190.50 cm) el Vitals: 09:22 Log In Time: November 06, 2016 at 09:20. [facility] ED Course: 09:21 Patient visited by Gini Prajapati PCA. elp 09:21 [facility] [place] Private Physician. elp 09:21 Patient moved to Waiting elp 09:23 Patient visited by Gini Prajapati PCA. elp 09:24 Patient moved to Pre RCE elp 09:30 Triage Initiated hs1 09:35 Norma Bennett RN is Primary Nurse. dwg 09:35 Patient moved to 8 dwg 09:37 Patient moved to 17 dwg 09:38 Primary Nurse role handed off by Norma Bennett RN srm 09:55 Patient visited by Adrien Mckeon RN. ml6 09:56 Jacquelyn Mcgowan MD is Attending Physician. fg 09:56 Patient visited by Jacquelyn Mcgowan MD. fg 10:00 Inserted peripheral IV: 18gauge IV in left antecubital area and blood collected. ml6 Patient tolerated the procedure well. Labs drawn. (by ED staff). Sent per order to lab. 10:36 Patient visited by Adrien Mckeon, NIHARIKA. ml6 10:56 [facility] Payment Agreement was scanned into [employer] and attached to record. lg 11:16 Patient visited by Adrien Mckeon RN. ml6 11:44 Patient visited by Adrien Mckeon RN. ml6 11:45 CT ABD & PELVIS: IV Contrast Only Returned. EDMS 12:10 Patient visited by Adrien Mckeon RN. ml6 12:24 Patient visited by Ruchi Andrade RN. srm 13:02 Patient visited by Adrien Mckeon, NIHARIKA. ml6 14:05 Patient visited by Adrien Mckeon, NIHARIKA. ml6 14:34 Bi Bonilla is Hospitalizing Provider. fg 16:14 The patient / caregiver is instructed regarding the plan of care and ED course. ml6 16:14 No procedures done that require assistance. ml6 11/07 09:50 T-Sheet-- Draft Copy was scanned into [employer] and attached to record. gb Administered Medications: 11/06 10:10 Drug: NS 0.9% 1000 ml [sodium chloride 0.9 % intravenous solution] Route: IV; Rate: ml6 bolus; Site: left antecubital; 10:10 Drug: Ondansetron 4 mg [ondansetron HCl 2 mg/mL intravenous solution (2 mL)] Route: ml6 IVP; Site: left antecubital; 12:45 Drug: Promethazine 12.5 mg [promethazine 25 mg/mL injection solution (0.5 mL)] Route: ml6 IVP; Site: left antecubital; 14:31 Drug: Promethazine 12.5 mg [promethazine 25 mg/mL injection solution (0.5 mL)] Route: ml6 IVP; Site: left antecubital; 14:35 Drug: metroNIDAZOLE 500 mg [metronidazole 500 mg/100 mL-sodium chloride(iso) ml6 intravenous piggyback] Route: IV; Rate: 100 mL/hr; Infused Over: 60 mins; Site: left antecubital; 14:53 Drug: Ciprofloxacin 400 mg [ciprofloxacin 400 mg/200 mL in 5 % dextrose intravenous ml6 piggyback] Route: IVPB; Rate: 200 mL/hr; Infused Over: 60 mins; Site: left antecubital; Order Results: Lab Order: CBC with Diff; SPEC'M 11/06/16 10:06 Test: WHITE BLOOD COUNT; Value: 10.3; Range: 4.0-10.0; Abnormal: Above high normal; Units: K/mm3; Status: F Test: RED BLOOD COUNT; Value: 5.32; Range: 4.30-6.10; Units: M/mm3; Status: F Test: HEMOGLOBIN; Value: 15.2; Range: 14.0-18.0; Units: g/dl; Status: F Test: HEMATOCRIT; Value: 45.0; Range: 42.0-52.0; Units: %; Status: F Test: MEAN CORPUSCULAR VOLUME; Value: 84.6; Range: 80.0-96.0; Units: fl; Status: F Test: MEAN CORPUSCULAR HEMOGLOBIN; Value: 28.5; Range: 27.0-33.0; Units: pg; Status: F Test: MEAN CORPUSCULAR HGB CONC; Value: 33.8; Range: 32.0-36.5; Units: g/dl; Status: F Test: RED CELL DISTRIBUTION WIDTH; Value: 12.9; Range: 11.5-14.5; Units: %; Status: F Test: PLATELET COUNT, AUTOMATED; Value: 225; Range: 150-450; Units: k/mm3; Status: F Test: NEUTROPHILS %; Value: 90.8; Range: 36.0-66.0; Abnormal: Above high normal; Units: %; Status: F Test: LYMPH %; Value: 5.0; Range: 24.0-44.0; Abnormal: Below low normal; Units: %; Status: F Test: MONO %; Value: 3.1; Range: 0.0-5.0; Units: %; Status: F Test: EOS %; Value: 0.5; Range: 0.0-3.0; Units: %; Status: F Test: BASO %; Value: 0.1; Range: 0.0-1.0; Units: %; Status: F Test: LARGE UNSTAINED CELL %; Value: 0.5; Range: 0.0-4.0; Units: %; Status: F Test: NEUTROPHILS #; Value: 9.4; Range: 1.8-7.7; Abnormal: Above high normal; Units: K/mm3; Status: F Test: LYMPH #; Value: 0.5; Range: 1.5-4.5; Abnormal: Below low normal; Units: K/mm3; Status: F Test: MONO #; Value: 0.3; Range: 0.0-0.8; Units: K/mm3; Status: F Test: EOS #; Value: 0.0; Range: 0.0-0.50; Units: K/mm3; Status: F Test: BASO #; Value: 0.0; Range: 0.0-0.2; Units: K/mm3; Status: F Test: LARGE UNSTAINED CELL #; Value: 0.1; Range: 0.0-0.4; Units: K/mm3; Status: F Lab Order: Basic Metabolic Profile; [facility] 11/06/16 10:06 Test: GLUCOSE, FASTING; Value: 116; Range: 70-105; Abnormal: Above high normal; Units: MG/DL; Status: F Test: BLOOD UREA NITROGEN; Value: 20; Range: 7-18; Abnormal: Above high normal; Units: MG/DL; Status: F Test: CREATININE FOR GFR; Value: 1.16; Range: 0.70-1.30; Units: MG/DL; Status: F Test: GLOMERULAR FILTRATION RATE; Value: > 60.0; Range: >60; Status: F Test: SODIUM LEVEL; Value: 140; Range: 136-145; Units: MEQ/L; Status: F Test: POTASSIUM SERUM; Value: 4.0; Range: 3.5-5.1; Units: MEQ/L; Status: F Test: CHLORIDE LEVEL; Value: 103; Range: 98-107; Units: MEQ/L; Status: F Test: CARBON DIOXIDE LEVEL; Value: 29; Range: 21-32; Units: MEQ/L; Status: F Test: ANION GAP; Value: 8; Range: 8-16; Units: MEQ/L; Status: F Test: CALCIUM LEVEL; Value: 8.7; Range: 8.5-10.1; Units: MG/DL; Status: F Test Note: ; Units are mL/min/1.73 m2 Chronic Kidney Disease Staging per NKF: Stage I & II GFR >=60 Normal to Mildly Decreased Stage III GFR 30-59 Moderately Decreased Stage IV GFR 15-29 Severely Decreased Stage V GFR <15 Very Little GFR Left ESRD GFR <15 on RN SPINE Lab Order: Lipase; SPEC'M 11/06/16 10:06 Test: LIPASE; Value: 149; Range: 73-393; Units: U/L; Status: F Lab Order: Liver Profile; SPEC'M 11/06/16 10:06 Test: AST/SGOT; Value: 29; Range: 15-37; Units: U/L; Status: F Test: ALT/SGPT; Value: 56; Range: 12-78; Units: U/L; Status: F Test: ALKALINE PHOSPHATASE; Value: 61; Range: 45-117; Units: U/L; Status: F Test: BILIRUBIN,TOTAL; Value: 0.7; Range: 0.2-1.0; Units: MG/DL; Status: F Test: BILIRUBIN,DIRECT; Value: 0.1; Range: 0.0-0.2; Units: MG/DL; Status: F Test: TOTAL PROTEIN; Value: 7.7; Range: 6.4-8.2; Units: GM/DL; Status: F Test: ALBUMIN; Value: 4.1; Range: 3.2-5.2; Units: GM/DL; Status: F Test: ALBUMIN/GLOBULIN RATIO; Value: 1.14; Range: 1.00-1.93; Status: F Radiology Order: CT ABD & PELVIS: IV Contrast Only Test: CT ABD & PELVIS: IV Contrast Only REASON FOR EXAMINATION: Abdomen Pain; CT abdomen and pelvis with IV contrast:; ; History: Abdominal pain.; ; CT contrast dose: 100 ml of Isovue 370 is administered intravenously.; ; Findings: Preliminary digital roll coverer radiograph is unremarkable. The lung window; settings demonstrate that the lung bases are clear. No pleural effusion is seen.; The liver and the spleen are normal in size and homogeneous in texture.; Gallbladder is unremarkable. No adrenal lesion is seen on either side. Pancreas; is normal in appearance. The kidneys enhance symmetrically and are; morphologically intact. There is an accessory lower pole right renal artery.; Normal caliber aorta is seen. No retroperitoneal mass or adenopathy is observed.; Seminal vesicles, prostate and urinary bladder are unremarkable. No abdominal; wall defect is seen. No bony destructive lesion is appreciated.; ; A normal appendix is seen in the right lower quadrant. Fluid-filled small bowel; loops are noted in the upper abdomen. No obstructive lesion is seen. There is; mild mural thickening of distal ileal loops fairly diffusely. The terminal most; ileum shows some submucosal fat in the bowel wall. This finding may correlate; with old inflammatory bowel disease. No other abnormality.; ; Impression:; ; 1. Question mild inflammatory bowel changes with mural thickening in the distal; ileum and some submucosal fat in the terminal ileum.; ; 2. Otherwise unremarkable CT study of the abdomen and pelvis with IV but without; oral contrast. Normal appendix seen.; ; ; Signed by; Lavelle Hayden MD 11/06/2016 12:25 P; Outcome: 14:34 Decision to Hospitalize by Provider. fg 16:13 Discharge Assessment: patient administered narcotics - no. The following High Risk ml6 Discharge criteria are identified: None. Admitted to Med/Surg accompanied by tech, via stretcher, with chart. Condition: stable. CT Study completed. Property sent home with patient. :Personal belongings accompany Pt. 16:15 Patient left the ED. ml6 Signatures: Dispatcher [employer] EDCT Tahir Dawn RN RN Ruchi Ng RN RN [facility] Ann, Reg Reg gb Temo [place], Reg Reg lg Adrien Mckeon RN RN ml6 Alyssa Lyon RN RN hs1 Gini Prajapati, LITHOGRAPH OPERATOR LITHOGRAPH OPERATOR Jacquelyn Liao MD MD fg Chart Complete MTDD
--- NOTE | 2016-11-08 17:17 | EDDOCDS ---
Physician Documentation [facility] Name: Jose A Balderas Age: 41 yrs Sex: Male : 1975 Arrival Date: 11/06/2016 Time: 09:20 Bed 17 Private MD: Emily [facility] [place]position: 11/06/16 14:34 Hospitalization ordered by Bi Bonilla for Inpatient Admission. Preliminary diagnosis are Abdominal and pelvic pain, Nausea and vomiting. - Bed requested for 4 [place]. - Status is Inpatient Admission. ml6 - Condition is Stable. - Problem is new. - Symptoms have improved. Historical: - Allergies: No known drug Allergies; - Home Meds: 1. Wellbutrin XL 300 mg Oral Tb24 1 tab once daily 2. gabapentin 300 mg Oral tab three times a day 3. Zestril 20 mg Oral tab 1 tab once daily 4. Lipitor 20 mg Oral tab 1 tab once daily 5. something for IBD 6. Flexeril 5 mg Oral tab 1 tab 3 times per day as needed 7. prazosin 5 mg Oral cap nightly - PMHx: IBD; PTSD; Anxiety; Colitis; GERD; - PSHx: none; - Social history: Smoking status: Patient states was never smoker of tobacco. No barriers to communication noted, The patient speaks fluent [place]yanese, Speaks appropriately for age. - Family history: Not pertinent. - : The pt / caregiver states he / she is not on anticoagulants. Home medication list is obtained from the patient. - Exposure Risk Screening:: None identified. Vital Signs: 11/06 09:22 BP 149 / 94; Pulse 83; Resp 16; Temp 96.0(O); Pulse Ox 98% on R/A; Weight 132.9 kg / elp 292.99 lbs (R); Height 75 in. (190.50 cm) (R); 15:43 BP 138 / 76 (auto/); Pulse 81; Resp 16; Temp 100(O); Pulse Ox 98% on R/A; Pain 0/10; ml6 09:22 Body Mass Index 36.62 (132.90 kg, 190.50 cm) elp MDM: 09:49 IV Saline Lock ordered. fg 09:49 NS 0.9% 1000 ml IV at bolus once ordered. fg 09:49 Undress patient appropriately for examination ordered. fg 09:49 CBC with Diff Ordered. EDMS 09:49 Basic Metabolic Profile Ordered. EDMS 09:49 Lipase Ordered. EDMS 09:49 Liver Profile Ordered. EDMS 09:50 NOTHING BY MOUTH+DIET ordered. EDMS 09:54 Ondansetron 4 mg IVP once ordered. ml6 10:15 CT ABD & PELVIS: IV Contrast Only Ordered. EDMS 10:28 Financial registration complete. lg 10:56 [facility] [place] Agreement was scanned into [employer] and attached to record. lg 12:44 Promethazine 12.5 mg IVP once; dilute and administer 30-60 minutes ordered. fg 14:28 Promethazine 12.5 mg IVP once; dilute and administer 30-60 minutes ordered. fg 14:34 Ciprofloxacin 400 mg IVPB at 200 mL/hr once over 60 mins ordered. fg 14:34 metroNIDAZOLE 500 mg IV at 100 mL/hr once over 60 mins ordered. fg 15:08 Admission / Observation Status ordered. EDMS 15:16 CLEAR LIQUIDS DIET ordered. EDMS 15:17 GASTROINTESTINAL (GI) PANEL Ordered. EDMS 15:17 GASTROINTESTINAL (GI) PANEL Ordered. EDMS 15:19 URINALYSIS Ordered. EDMS 15:19 BLOOD CULTURES Ordered. EDMS 15:19 BLOOD CULTURES Ordered. EDMS 15:19 URINE CULTURE Ordered. EDMS 02 09:50 T-Sheet-- Draft Copy was scanned into [employer] and attached to record. gb Administered Medications: 11/06 10:10 Drug: NS 0.9% 1000 ml [sodium chloride 0.9 % intravenous solution] Route: IV; Rate: ml6 bolus; Site: left antecubital; 10:10 Drug: Ondansetron 4 mg [ondansetron HCl 2 mg/mL intravenous solution (2 mL)] Route: ml6 IVP; Site: left antecubital; 12:45 Drug: Promethazine 12.5 mg [promethazine 25 mg/mL injection solution (0.5 mL)] Route: ml6 IVP; Site: left antecubital; 14:31 Drug: Promethazine 12.5 mg [promethazine 25 mg/mL injection solution (0.5 mL)] Route: ml6 IVP; Site: left antecubital; 14:35 Drug: metroNIDAZOLE 500 mg [metronidazole 500 mg/100 mL-sodium chloride(iso) ml6 intravenous piggyback] Route: IV; Rate: 100 mL/hr; Infused Over: 60 mins; Site: left antecubital; 14:53 Drug: Ciprofloxacin 400 mg [ciprofloxacin 400 mg/200 mL in 5 % dextrose intravenous ml6 piggyback] Route: IVPB; Rate: 200 mL/hr; Infused Over: 60 mins; Site: left antecubital; Signatures: Dispatcher [employer] EDMS Ann Ren[place], Reg Reg gb Temo England, Reg Reg lg Adrien Mckeon RN RN ml6 Alyssa Lyon RN RN hs1 Radha Early RN RN sls2 Jacquelyn Mcgowan MD MD fg The chart was reviewed and I authenticate all verbal orders and agree with the evaluation and treatment provided.Attachments: 10:56 [facility] Payment Agreement lg 11/07 09:50 T-Sheet-- Draft Copy gb Chart Complete MTDD
--- NOTE | 2016-11-08 17:17 | EDDOCDS ---
Physician Documentation [facility] Name: Jose A Balderas Age: 41 yrs Sex: Male : 1975 Arrival Date: 11/06/2016 Time: 09:20 Bed 17 Private MD: Emily [facility] [place] [place] Disposition: 11/06/16 14:34 Hospitalization ordered by Bi Bonilla for Inpatient Admission. Preliminary diagnosis are Abdominal and pelvic pain, Nausea and vomiting. - Bed requested for 4 [place]. - Status is Inpatient Admission. ml6 - Condition is Stable. - Problem is new. - Symptoms have improved. Historical: - Allergies: No known drug Allergies; - Home Meds: 1. Wellbutrin XL 300 mg Oral Tb24 1 tab once daily 2. gabapentin 300 mg Oral tab three times a day 3. Zestril 20 mg Oral tab 1 tab once daily 4. Lipitor 20 mg Oral tab 1 tab once daily 5. something for IBD 6. Flexeril 5 mg Oral tab 1 tab 3 times per day as needed 7. prazosin 5 mg Oral cap nightly - PMHx: IBD; PTSD; Anxiety; Colitis; GERD; - PSHx: none; - Social history: Smoking status: Patient states was never smoker of tobacco. No barriers to communication noted, The patient speaks fluent [place], Speaks appropriately for age. - Family history: Not pertinent. - : The pt / caregiver states he / she is not on anticoagulants. Home medication list is obtained from the patient. - Exposure Risk Screening:: None identified. Vital Signs: 11/06 09:22 BP 149 / 94; Pulse 83; Resp 16; Temp 96.0(O); Pulse Ox 98% on R/A; Weight 132.9 kg / elp 292.99 lbs (R); Height 75 in. (190.50 cm) (R); 15:43 BP 138 / 76 (auto/); Pulse 81; Resp 16; Temp 100(O); Pulse Ox 98% on R/A; Pain 0/10; ml6 09:22 Body Mass Index 36.62 (132.90 kg, 190.50 cm) elp MDM: 09:49 IV Saline Lock ordered. fg 09:49 NS 0.9% 1000 ml IV at bolus once ordered. fg 09:49 Undress patient appropriately for examination ordered. fg 09:49 CBC with Diff Ordered. EDMS 09:49 Basic Metabolic Profile Ordered. EDMS 09:49 Lipase Ordered. EDMS 09:49 Liver Profile Ordered. EDMS 09:50 NOTHING BY MOUTH+DIET ordered. EDMS 09:54 Ondansetron 4 mg IVP once ordered. ml6 10:15 CT ABD & PELVIS: IV Contrast Only Ordered. EDMS 10:28 Financial registration complete. lg 10:56 [facility] [place] Payment Agreement was scanned into [employer] and attached to record. lg 12:44 Promethazine 12.5 mg IVP once; dilute and administer 30-60 minutes ordered. fg 14:28 Promethazine 12.5 mg IVP once; dilute and administer 30-60 minutes ordered. fg 14:34 Ciprofloxacin 400 mg IVPB at 200 mL/hr once over 60 mins ordered. fg 14:34 metroNIDAZOLE 500 mg IV at 100 mL/hr once over 60 mins ordered. fg 15:08 Admission / Observation Status ordered. EDMS 15:16 CLEAR LIQUIDS DIET ordered. EDMS 15:17 GASTROINTESTINAL (GI) PANEL Ordered. EDMS 15:17 GASTROINTESTINAL (GI) PANEL Ordered. EDMS 15:19 URINALYSIS Ordered. EDMS 15:19 BLOOD CULTURES Ordered. EDMS 15:19 BLOOD CULTURES Ordered. EDMS 15:19 URINE CULTURE Ordered. EDMS 02 09:50 T-Sheet-- Draft Copy was scanned into [employer] and attached to record. gb Administered Medications: 11/06 10:10 Drug: NS 0.9% 1000 ml [sodium chloride 0.9 % intravenous solution] Route: IV; Rate: ml6 bolus; Site: left antecubital; 10:10 Drug: Ondansetron 4 mg [ondansetron HCl 2 mg/mL intravenous solution (2 mL)] Route: ml6 IVP; Site: left antecubital; 12:45 Drug: Promethazine 12.5 mg [promethazine 25 mg/mL injection solution (0.5 mL)] Route: ml6 IVP; Site: left antecubital; 14:31 Drug: Promethazine 12.5 mg [promethazine 25 mg/mL injection solution (0.5 mL)] Route: ml6 IVP; Site: left antecubital; 14:35 Drug: metroNIDAZOLE 500 mg [metronidazole 500 mg/100 mL-sodium chloride(iso) ml6 intravenous piggyback] Route: IV; Rate: 100 mL/hr; Infused Over: 60 mins; Site: left antecubital; 14:53 Drug: Ciprofloxacin 400 mg [ciprofloxacin 400 mg/200 mL in 5 % dextrose intravenous ml6 piggyback] Route: IVPB; Rate: 200 mL/hr; Infused Over: 60 mins; Site: left antecubital; Signatures: Dispatcher [employer] EDMS Ann [place], Reg Reg gb Temo [place], Reg Reg lg Adrien Mckeon RN RN ml6 Alyssa Lyon RN RN hs1 Radha Early RN RN sls2 Jacquelyn Mcgowan MD MD fg The chart was reviewed and I authenticate all verbal orders and agree with the evaluation and treatment provided.Attachments: 10:56 [facility] [place] Payment Agreement lg 11/07 09:50 T-Sheet-- Draft Copy gb Chart Complete MTDD
--- NOTE | 2016-11-09 13:18 | DSES ---
DATE OF ADMISSION: 11/06/2016 DATE OF DISCHARGE: 11/08/2016 DISCHARGE DIAGNOSES: Nausea, vomiting, diarrhea. SECONDARY DIAGNOSES: Norovirus. Ulcerative colitis. Hypertension. Anxiety. Post-traumatic stress disorder (PTSD). Chronic pain. BPH. Dyslipidemia. HOSPITAL COURSE: The patient is a 41-year-old man who denied sick contacts but presented with nausea, vomiting and abdominal pain. CT scan revealed evidence concerning somewhat for colitis. The patient has a history of ulcerative colitis. He was admitted to the medical-surgical floor and started on intravenous (IV) ciprofloxacin and Flagyl. The patient's symptoms did quickly improve and GI PCR panel returned positive actually for Norovirus, so at this time, antibiotics were discontinued. The patient's nausea, vomiting and diarrhea were progressively resolving. He was tolerating a regular diet. He was medically stable for discharge home at this time. SUBJECTIVE: This morning, the patient reports he is feeling well. He has no complaints. No denies nausea, vomiting, fevers, chills, chest pain or shortness of breath. OBJECTIVE: VITAL SIGNS: Temperature 96.4, pulse 75, respiratory rate 16, blood pressure 124/86, oxygen saturation 95% on room air. GENERAL: He is a middle-aged man, obese, sitting up in bed, in no distress. HEENT: Cranial nerves II-XII are grossly intact. He has moist mucous membranes. No elevation of central venous pressure (CVP). CARDIOVASCULAR EXAM: S1, S2 regular. RESPIRATORY EXAM: Clear. ABDOMINAL EXAM: Benign. EXTREMITIES: No clubbing, cyanosis, or edema. LABORATORY STUDIES: WBC is 6.2, hemoglobin 13.1, hematocrit 38.1, platelet count 200. Chemistry panel: Sodium 140, potassium 3.4, chloride 105, bicarbonate 27, BUN 13, creatinine 1.0. Microbiology: Blood cultures negative. GI PCR positive for Norovirus. CT of the abdomen and pelvis once again revealed mild inflammatory bowel changes with mural thickening in the distal ileum and some submucosal fat in the terminal ileum. ASSESSMENT AND PLAN: This is a 41-year-old man with resolving viral gastroenteritis secondary to Norovirus. Problems: 1. Gastroenteritis secondary to Norovirus. The patient has been discontinued from IV antibiotics. He is tolerating a regular diet. He was not requiring antiemetics at this time. He was discharged home with followup with his primary care provider (PCP) within 7 days. 2. Ulcerative colitis. The patient was continued on his Entocort. 3. Hypertension. The patient was continued on his home blood pressure medications. 4. Anxiety and post-traumatic stress disorder (PTSD). The patient was continued Wellbutrin. 5. Chronic pain. The patient was continued on Neurontin. 6. BPH. The patient is on prazosin. 7. Dyslipidemia. The patient is on Lipitor. 8. Deep vein thrombosis (DVT) prophylaxis. Sequentials and thromboembolism deterrents (TEDs). DISPOSITION: The patient is medically stable for discharge home to the care of his family. He is to followup with his primary care provider (PCP) within 7 days. His activity and diet are as prior to admission. He is to return to the emergency room (ER) if his symptoms worsen. MEDICATIONS AT THE TIME OF DISCHARGE: - Lipitor 20 mg daily - budesonide 3 mg daily - bupropion extended release 300 mg daily - Refresh Tears 0.5% drops each eye as needed for dry eyes - vitamin D3 5000 units daily - Nexium 40 mg daily - gabapentin 300 mg three times a day - lisinopril 10 mg daily - prazosin 5 mg nightly Greater than 30 minutes spent organizing disposition.
== END 2016-11-08 10:17 | disposition home or self-care (01) ==
LOC: M ED 09:20 → M ED INP 15:07 → M MSPAV 16:23
PROVIDERS: ADMIT Internal Medicine; ATTEND Internal Medicine
DX: A08.11 Acute gastroenteropathy due to Norwalk agent (principal); K51.90 Ulcerative colitis, unspecified, without complications; I10 Essential (primary) hypertension; F41.9 Anxiety disorder, unspecified; F43.10 Post-traumatic stress disorder, unspecified; G89.29 Other chronic pain; N40.0 Benign prostatic hyperplasia without lower urinary tract symptoms; E78.5 Hyperlipidemia, unspecified; K21.9 Gastro-esophageal reflux disease without esophagitis; M26.609 Unspecified temporomandibular joint disorder, unspecified side; Z79.899 Other long term (current) drug therapy
CPT/HCPCS: 36415; 74177; 80048; 80053; 80076; 83690; 85025; 87040; 87507; 96374; 96375; 96376; 99285; J0744; J2405; Q9967

== ENCOUNTER → 2016-11-26 | Outpatient (CLI) | payer OTHER ==
[~2016-11-26] MED LIST: ATOR1TAB21 PO; BUDE3CAP PO; BUPR300T34 PO; GABA300C3 PO; LISI10TA4 PO; NEXI40CA PO; PRAZ5CAP PO; REFR0.5D8 OU; VITA500055 PO
--- NOTE | 2016-11-28 19:10 | SLEEPCENT ---
DATE OF PROCEDURE: 11/26/2016 ORDERED BY: Petra Yates Nocturnal polysomnography was performed due to concern for the obstructive sleep apnea syndrome, in this patient with a history of excessive somnolence and nonrestorative sleep. 7 hours and 34 minutes of data were reviewed. There were 390 minutes of sleep identified. Sleep latency was mildly prolonged at 23 minutes. Rapid eye movement (REM) latency was prolonged at 140 minutes. Sleep architecture showed fragmentation and poor progression early in this study, overall sleep efficiency was 87%. The patient's EKG showed a sinus rhythm with an average heart rate of 66 beats per minute. Rate variability was seen surrounding respiratory events. Rate range 58 to 90 beats per minute. EEG showed normal wave forms for wake and sleep. There were 46 respiratory events identified of 10 seconds in duration or greater for an apnea-hypopnea index of 7.1. The events were not exclusive to sleep stage nor body posture. They were primarily obstructive. Arousals from respiratory events occurred 4.9 times per hour. Oxygen desaturations were seen in the low 80's. Remaining measures of sleep physiology were normal. IMPRESSION: Obstructive sleep apnea syndrome (G47.33). RECOMMENDATIONS: Patient should be encouraged to return to the sleep disorder center for pressure therapy. In the interim, alcohol and sedative avoidance should be practiced, and caution exercised during the operation of motor vehicles.
== END ==
LOC: M SLEEP 19:42
PROVIDERS: ATTEND Nurse Practitioner Adult Health
DX: G47.33 Obstructive sleep apnea (adult) (pediatric) (principal)